=== PATIENT | female | born 1950 | race Caucasian/White ===

== ENCOUNTER 2024-05-03 18:44 | Emergency (ER) | payer MEDICARE, OTHER ==
[~2024-05-03] VITALS: Ht 162.6 cm; Wt 71.4 kg
[~2024-05-03 18:44] MED LIST: CHLORDIAZEPOXID25 MG PO; CHLORTHALIDONE25 MG PO; LOSARTAN POTASS25 MG PO; METFORMIN HCL1000 MG PO; WELCHOL625 MG PO
[2024-05-03] MEDS ORDERED: DICYCLOMINE HCL10 MG PO (18:59)
[2024-05-03] MEDS ORDERED: ALPRAZOLAM0.25 MG PO (18:59)
[2024-05-03] MEDS ORDERED: LOSARTAN POTASS50 MG (19:00)
[2024-05-03] MEDS ORDERED: CLOBETASOL PROP15 G3 (19:00)
[2024-05-03] MEDS ORDERED: PROPRANOLOL HCL60 MG (19:00)
[2024-05-03] MEDS ORDERED: PIOGLITAZONE HC15 MG (19:00)
[2024-05-03] MEDS ORDERED: APATATE LIQUID120 ML (19:01)
[2024-05-03] MEDS ORDERED: OSTERA TABLET1 EACH (19:01)
[2024-05-03] MEDS ORDERED: MAGNESIUM250 M2 (19:02)
[2024-05-03] MEDS ORDERED: TYLENOL EXTRA500 MG (19:02)
[2024-05-03 19:16] LABS: BASOPHILS 1.1 % (0-2); EOSINOPHILS 3.9 % (0-6); HEMATOCRIT 39.8 % (35.0-50.0); HEMOGLOBIN 13.4 g/dL (12.0-18.0); LYMPHOCYTES 41.5 % (24-44); MCH 32.5 (27-36); MCHC 33.7 g/dl (30-36); MCV 96.4 fl (81-99); MONOCYTES 8.8 % (0-12); NEUTROPHILS 44.7 % (39-80); PLATELET COUNT 219 K/uL (140-440); RBC 4.13 M/ul (4.3-5.7); RDW 13.9 (10.5-15.0)
[2024-05-03 19:41] LABS: ALBUMIN/GLOBULIN RATIO 1.33 (1.1-2.4); ANION GAP 14.5 (7-21); BILIRUBIN, TOTAL 0.3 mg/dL (0.2-1.0); BUN/CREATININE RATIO 14.28 (6.0-28.6); CREATININE, SERUM 0.98 mg/dL (0.55-1.02); MAGNESIUM 1.8 mg/dL (1.8-2.4); POTASSIUM 3.5 mmol/L (3.5-5.1); TSH, 3RD GENERATION 2.253 uIU/mL (0.358-3.740)
[2024-05-03] MEDS ORDERED: ENALAPRILAT DIHYDRATE 1.25 MG/ML VIAL IV ONE (19:45)
[2024-05-03] MEDS ORDERED: LORazepam 2 MG/ML VIAL IV ONE (20:15)
[2024-05-03] MEDS ORDERED: LORazepam 1 MG HOME.PACK PO ONE (21:30)
[2024-05-03 21:45] VITALS: BP 140/90
--- NOTE | 2024-05-03 22:58 | EKG ---
[facility] [address] [facility] [place] [id number] Signed Normal sinus rhythm Normal ECG No previous ECGs available Confirmed by Tip Brown MD () on 05/03/2024 10:57:41 PM Electronically Signed By: TIP BROWN MD 05/03/24 2258 PATIENT NAME: LIANNE JIMENEZ Electrocardiogram DATE OF : 50 PHYSICIAN: TIP BROWN MD REPORT #: [id number] REPORT IS CONFIDENTIAL AND NOT TO BE RELEASED WITHOUT AUTHORIZATION
== END 2024-05-03 21:45 | disposition home or self-care (01) ==
LOC: ED 18:44
PROVIDERS: Emergency Medicine; Family Medicine
DX: F43.9 Reaction to severe stress, unspecified (principal); I10 Essential (primary) hypertension; E11.9 Type 2 diabetes mellitus without complications; Z87.891 Personal history of nicotine dependence; Z88.5 Allergy status to narcotic agent; Z88.8 Allergy status to other drugs, medicaments and biological substances; Z79.84 Long term (current) use of oral hypoglycemic drugs; Z79.899 Other long term (current) drug therapy
CPT/HCPCS: 36415; 80053; 80307; 83735; 84439; 84443; 84484; 85025; 93005; 93010; 96374; 96375; 99285-25; J2060

== ENCOUNTER 2024-12-03 13:16 | Emergency (ER) | payer MEDICARE, OTHER ==
[~2024-12-03] VITALS: Ht 162.6 cm; Wt 68.5 kg
[~2024-12-03 13:16] MED LIST changes: +ALPRAZOLAM0.25 MG PO; +APATATE LIQUID120 ML; +CLOBETASOL PROP15 G3; +DICYCLOMINE HCL10 MG PO; +LOSARTAN POTASS50 MG; +MAGNESIUM250 M2; +OSTERA TABLET1 EACH; +PIOGLITAZONE HC15 MG; +PROPRANOLOL HCL60 MG; +TYLENOL EXTRA500 MG
[2024-12-03] MEDS ORDERED: KETOROLAC TROMETHAMINE 30 MG/ML VIAL IM ONE (14:15)
[2024-12-03] MEDS ORDERED: HYDROCODONE/ACETA 5/325 TAB PO ONE (14:15)
[2024-12-03] MEDS ORDERED: METHYLPREDNISOLO4 M1 PO (15:54)
[2024-12-03] MEDS ORDERED: HYDROCODON-ACE1 EA10 PO (15:55)
[2024-12-03] MEDS ORDERED: LIDOCAINE HCL 4% 1 EACH PATCH TD ONE (16:00)
[2024-12-03] MEDS ORDERED: HYDROCODONE BIT/ACETAMINOPHEN 5/325 MG 1 TAB HOME.PACK PO ONE (16:00)
[2024-12-03 16:23] VITALS: BP 171/79
[2024-12-03] MEDS ORDERED: LIDOCAINE PATCH REMOVAL 1 EA TD SCH (21:00)
== END 2024-12-03 16:23 | disposition home or self-care (01) ==
LOC: ED 13:16
DX: M54.41 Lumbago with sciatica, right side (principal); I10 Essential (primary) hypertension; E11.9 Type 2 diabetes mellitus without complications; Z87.891 Personal history of nicotine dependence; Z88.5 Allergy status to narcotic agent; Z88.8 Allergy status to other drugs, medicaments and biological substances; Z79.84 Long term (current) use of oral hypoglycemic drugs; Z79.899 Other long term (current) drug therapy
CPT/HCPCS: 72100; 73502; 96372; 99283; A9270; J1885; J8540